=== PATIENT | female | born 1965 | race African-American/Black ===

== ENCOUNTER 2021-07-04 11:38 | Emergency (ER) | payer OTHER, SELFPAY ==
[2021-07-04 11:58] VITALS: BP 164/111; PULSE 90; RESP 20; TEMP 36.8; O2SAT 100
--- NOTE | 2021-07-04 11:58 | PC.NURSE ---
Dr. Kern at bedside to assess pt.
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
[2021-07-04] MEDS: IBUPROFEN 400 MG TABLET 800 MG PO (12:22)
[2021-07-04 12:34] VITALS: BP 143/97; PULSE 75; RESP 23; O2SAT 99
== END 2021-07-04 12:41 | disposition home or self-care (01) ==
PROVIDERS: Emergency Provider Emergency Medicine; PCP Nurse Practitioner Family
DX: T14.90XA Injury, unspecified, initial encounter (principal); I10 Essential (primary) hypertension; V49.40XA Driver injured in collision with unspecified motor vehicles in traffic accident, initial encounter
CPT/HCPCS: 99283; A9270